=== PATIENT | female | born 1980 | race American Indian/Alaskan Native ===

== ENCOUNTER 2017-02-06 02:39 | Emergency (ER) | payer MEDICAID ==
--- NOTE | 2017-02-06 04:37 | Emergency Department Report ---
Abscess Boil HPI - [facility] Chief Complaint: Skin/Abscess/Foreign Body Stated Complaint: SPIDER BITE Time Seen by Provider: 02/06/17 03:51 History: Yes Pain, Yes Insect Bite, No Fever, No Purulent Drainage, No Numbness , No Foreign Body, No Previous History Home Medications: Home Medications Medication Instructions Recorded Confirmed Last Taken Ibuprofen [Motrin] 800 mg PO 4XD PRN 05/20/13 05/20/13 06/27/13 LORazepam [Ativan] 1 mg PO TID PRN 07/01/13 07/01/13 06/30/13 21:00 Previous Rx's Medication Instructions Recorded Last Taken Type Cephalexin [Keflex] 500 mg PO TID #30 capsule 02/06/17 Unknown Rx Ibuprofen [Motrin 800 MG tab] 800 mg PO Q8HR PRN #30 tablet 02/06/17 Unknown Rx Allergies/Adverse Reactions: Allergies Allergy/AdvReac Type Severity Reaction Status Date / Time codeine AdvReac Nausea Verified 02/06/17 02:56 ED Review of Systems ROS: Stated complaint: SPIDER BITE Other details as noted in HPI Constitutional: denies: chills, fever Eyes: denies: eye pain, eye discharge, vision change ENT: denies: ear pain, throat pain Respiratory: denies: cough, shortness of breath, wheezing Cardiovascular: denies: chest pain, palpitations Endocrine: no symptoms reported Gastrointestinal: denies: abdominal pain, nausea, diarrhea Genitourinary: denies: urgency, dysuria, discharge Musculoskeletal: denies: back pain, joint swelling, arthralgia Skin: lesions, other (left hip) Neurological: denies: headache, weakness, paresthesias Psychiatric: denies: anxiety, depression Hematological/Lymphatic: denies: easy bleeding, easy bruising ED Past Medical Hx - Past Medical History Previous Medical History?: Yes Hx Psychiatric Treatment: No Additional medical history: polycystic ovaries - Surgical History Past Surgical History?: Yes - Social History Smoking Status: Current Every Day Smoker Substance Use Type: Alcohol, Cocaine - Medications Home Medications: Home Medications Medication Instructions Recorded Confirmed Last Taken Type Ibuprofen [Motrin] 800 mg PO 4XD PRN 05/20/13 05/20/13 06/27/13 History LORazepam [Ativan] 1 mg PO TID PRN 07/01/13 07/01/13 06/30/13 21:00 History Cephalexin [Keflex] 500 mg PO TID #30 capsule 02/06/17 Unknown Rx Ibuprofen [Motrin 800 MG tab] 800 mg PO Q8HR PRN #30 tablet 02/06/17 Unknown Rx ED Abscess Boil Physical Exam - Exam General: Vital signs noted. No distress. Alert and acting appropriately. Front/Back of Body, Lg (Color): 1 - left lateral hip Size: 2 cm Exam: Yes Tenderness, Yes Surrounding Cellulites/Erythema, Yes Normal Neurologic Exam, Yes Normal Circulation, No Fluctuance, No Lymphangitis, No Crepitation, No Heart Murmur ED Course Vital Signs 02/06/17 02:55 Temperature 98.7 F Pulse Rate 92 H Blood Pressure 135/84 [Right] O2 Sat by Pulse 100 Oximetry Critical care attestation.: If time is entered above; I have spent that time in minutes in the direct care of this critically ill patient, excluding procedure time. ED Medical Decision Making - Medical Decision Making left lateral hip cellulitis approx 1x2 cm erythema no fluctuance no drainage , pt endorse 2ndary to insect bite 2 weeks ago pt denies fever no chills no n/v , pt given care instruction including warm compresses nad symptoms to return to emergency pt verbalized uderstanding and agreement with same. will DC wit keflex and nsaid for pain ED Disposition Clinical Impression: Cellulitis of hip, left Disposition: DC-01 TO HOME OR SELFCARE Is pt being admited?: No Does the pt Need Aspirin: No Condition: Good Instructions: Cellulitis (ED), Abscess (ED) Prescriptions: Cephalexin [Keflex] 500 mg PO TID #30 capsule Ibuprofen [Motrin 800 MG tab] 800 mg PO Q8HR PRN #30 tablet PRN Reason: Pain Forms: Work/School Release Form(ED) Time of Disposition: 04:39
[2017-02-06 04:51] VITALS: BP 135/84
== END 2017-02-06 04:58 | disposition home or self-care (01) ==
LOC: ED 02:39
DX: L03.116 Cellulitis of left lower limb (principal); F17.210 Nicotine dependence, cigarettes, uncomplicated; F14.10 Cocaine abuse, uncomplicated; Z88.6 Allergy status to analgesic agent
CPT/HCPCS: 99282

== ENCOUNTER 2018-02-09 18:55 | Emergency (ER) | payer MEDICAID, OTHER ==
[2018-02-10] MEDS ORDERED: ZOFRAN ODT ONE (00:52)
[2018-02-10] MEDS ORDERED: ZOFRAN ODT PO ONE (00:57)
[2018-02-10 04:43] LABS: Basophils # (Auto) 0.1 K/mm3 (0.0-0.1); Basophils % (Auto) 0.5 % (0.0-1.8); Eosinophils # (Auto) 0.1 K/mm3 (0.0-0.4); Eosinophils % (Auto) 0.4 % (0.0-4.3); Hematocrit 45.4 % (30.3-42.9); Hemoglobin 15.1 gm/dl (10.1-14.3); Lymphocytes # (Auto) 2.5 K/mm3 (1.2-5.4); Lymphocytes % (Auto) 18.8 % (13.4-35.0); Mean Corpuscular HGB Conc 33 % (30-34); Mean Corpuscular Hemoglobin 31 pg (28-32); Mean Corpuscular Volume 93 fl (79-97); Monocytes % (Auto) 7.3 % (0.0-7.3); Platelet Count 319 K/mm3 (140-440); Red Cell Distribution Width 14.1 % (13.2-15.2)
[2018-02-10 05:03] LABS: Alanine Aminotransferase 10 units/L (7-56); Albumin 4.5 g/dL (3.9-5); BUN/Creatinine Ratio 21; Blood Urea Nitrogen 19 mg/dL (7-17); Calcium 9.7 mg/dL (8.4-10.2); Hemolysis Index 15
[2018-02-10 05:53] LABS: Bilirubin,Urine NEG (Negative); Blood,Urine NEG (Negative); Color,Urine Amber (Yellow); Hyaline Casts,Urine 6 /LPF; Mucus,Urine 3+ /HPF
[2018-02-10] MEDS ORDERED: MOTRIN PO ONE (06:03)
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
[2018-02-10] MEDS ORDERED: NACL 0.9% 1000 ML 1,000 ML IV ONE (07:02)
[2018-02-10 07:06] LABS: HCG Qualitative,Urine Negative (Negative)
[2018-02-10 07:11] LABS: Amphetamine Screen,Urine PRESUMPTIVE NEGATIVE; Benzodiazepines Screen,Urine PRESUMPTIVE NEGATIVE; Cannabinoid Screen,Urine PRESUMPTIVE NEGATIVE; Methadone Screen,Urine PRESUMPTIVE NEGATIVE; Opiate Screen,Urine PRESUMPTIVE NEGATIVE
[2018-02-10 07:45] VITALS: BP 113/63
[2018-02-10 07:45] LABS: Cocaine Screen,Urine PRESUMPTIVE POSITIVE
[2018-02-10 08:26] LABS: Bacteria,Urine 1+ /HPF (Negative)
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
== END 2018-02-10 09:54 | disposition home or self-care (01) ==
LOC: ED 18:55
DX: M54.2 Cervicalgia (principal); F14.10 Cocaine abuse, uncomplicated; F17.200 Nicotine dependence, unspecified, uncomplicated; Z88.5 Allergy status to narcotic agent; V47.6XXA Car passenger injured in collision with fixed or stationary object in traffic accident, initial encounter; Y93.89 Activity, other specified; Y99.8 Other external cause status; Y92.415 Exit ramp or entrance ramp of street or highway as the place of occurrence of the external cause
CPT/HCPCS: 36415; 71275; 74174; 80053; 80307; 81001; 81025; 85025; 96360; 99284; Q9967; Q0162